=== PATIENT | male | born 2000 | race Caucasian/White ===

== ENCOUNTER 2023-07-06 09:23 | Emergency (ER) | payer MEDICAID, OTHER | END 2023-07-06 10:54 | disposition home or self-care (01) | LOC: JP.ED 09:23 | DX: S63.641A Sprain of metacarpophalangeal joint of right thumb, initial encounter (principal); V67.5XXA Driver of heavy transport vehicle injured in collision with fixed or stationary object in traffic accident, initial encounter; Y92.410 Unspecified street and highway as the place of occurrence of the external cause | CPT/HCPCS: 73130-26-RT; 73130-RT; 99282; 99283 ==